=== PATIENT | male | born 1960 | race Caucasian/White ===

== ENCOUNTER 2017-04-03 14:51 | Emergency (ER) | payer MEDICAID ==
[~2017-04-03] VITALS: Ht 177.8 cm; Wt 81.6 kg
[2017-04-03 14:58] VITALS: BP 144/82
== END 2017-04-03 15:04 | disposition left against medical advice (07) ==
LOC: ER 14:51
DX: R05 Cough (principal); Z53.21 Procedure and treatment not carried out due to patient leaving prior to being seen by health care provider
CPT/HCPCS: 71046